=== PATIENT | male | born 1950 | race Caucasian/White ===

== ENCOUNTER 2018-02-19 07:14 | Outpatient (CLI) | payer MEDICARE ==
[2018-02-19 11:53] LABS: BILIRUBIN,URINE NEGATIVE (NEGATIVE); GLUCOSE, URINE (UA) NEGATIVE (NEGATIVE); KETONES,URINE (UA) NEGATIVE (NEGATIVE); LEUKOCYTE ESTERASE, URINE NEGATIVE (NEGATIVE); NITRITE,URINE NEGATIVE (NEGATIVE); OCCULT BLOOD,URINE NEGATIVE (NEGATIVE); PROTEIN,URINE NEGATIVE (NEGATIVE); UROBILINOGEN,URINE 0.2 (NORMAL) E.U./dL (NORMAL)
[2018-02-19 12:09] LABS: BASOPHILS % (AUTO) 0.8 %; EOSINOPHILS # (AUTO) 0.2 10^3/uL (0.0-0.7); EOSINOPHILS % (AUTO) 2.4 %; HGB - HEMOGLOBIN 13.1 g/dL (14.0-18.0); LYMPHOCYTES # (AUTO) 1.5 10^3/uL (1.5-3.5); LYMPHOCYTES % (AUTO) 22.9 %; MEAN CORPUSCULAR HEMOGLOBIN 31.7 pg (27.0-31.0); MEAN CORPUSCULAR HGB CONC 34.9 g/dL (32.0-36.0); MEAN CORPUSCULAR VOLUME 90.8 fL (80.0-94.0); MEAN PLATELET VOLUME 8.8 fL (7.4-11.4); MONOCYTES # (AUTO) 0.5 10^3/uL (0.0-1.0); MONOCYTES % (AUTO) 8.5 %; NEUTROPHILS # (AUTO) 4.2 10^3/uL (1.5-6.6); NEUTROPHILS % (AUTO) 65.4 %; PLT - PLATELET COUNT 254 10^3/uL (130-450); RED BLOOD COUNT 4.15 10^6/uL (4.70-6.10); RED CELL DISTRIBUTION WIDTH 12.8 % (12.0-15.0); WHITE BLOOD COUNT 6.4 x10^3/uL (4.8-10.8)
[2018-02-19 12:17] LABS: ALBUMIN 4.1 g/dL (3.2-5.5); ALBUMIN/GLOBULIN RATIO 1.1 (1.0-2.2); BILIRUBIN,TOTAL 0.8 mg/dL (0.2-1.0); CALCIUM 8.8 mg/dL (8.5-10.3); CREATININE 0.7 mg/dL (0.6-1.2); TOTAL PROTEIN 7.9 g/dL (6.7-8.2)
[2018-02-19 12:26] LABS: BACTERIA,URINE None Seen /HPF (None Seen); CLARITY,URINE CLEAR (CLEAR); RBC,URINE None Seen /HPF (0-5); SQUAMOUS EPITHELIAL CELL,UR NONE SEEN (<= Few)
== END 2018-02-19 07:15 | disposition home or self-care (01) ==
LOC: LAB.F 07:14
PROVIDERS: ATTEND Internal Medicine
DX: M17.12 Unilateral primary osteoarthritis, left knee (principal)
CPT/HCPCS: 36415; 80053; 81001; 85025; 85610; 87086

== ENCOUNTER 2018-02-28 21:06 | Emergency (ER) | payer MEDICARE, OTHER ==
--- NOTE | 2018-02-28 22:05 | ED Physician Documentation ---
History of Present Illness - Stated complaint Stated Complaint: RT HIP PX - Chief complaint Chief Complaint: Ext Problem - History obtained from History obtained from: Patient - History of Present Illness Timing: Today (this morning) Pain level now: 8 Improved by: rest Worsened by: movement - Additonal information Additional information: c/o right hip pain, gradually worsening since gradual onset this morning. he says he had recent xrays performed that demonstrated severe arthritis and that he was told he will likely need the hip replaced. no recent injury. pain has become severe and has never been this intense in the past. he took two tablets of his wifes oxycodone earlier this evening without any improvement Review of Systems Constitutional: reports: Reviewed and negative Skin: denies: Rash Musculoskeletal: reports: Joint pain, Pain with weight bearing. denies: Neck pain, Back pain, Extremity swelling, Joint swelling Neurologic: denies: Focal weakness, Numbness PD PAST MEDICAL HISTORY - Past Medical History Past Medical History: Yes - Present Medications Home Medications: Ambulatory Orders Medication Instructions Recorded Confirmed HYDROmorphone [Dilaudid] 2 mg PO Q4H PRN #20 tablet 03/01/18 Ibuprofen 600 mg PO Q6HR PRN #20 tablet 03/01/18 - Allergies Allergies/Adverse Reactions: Allergies Allergy/AdvReac Type Severity Reaction Status Date / Time No Known Drug Allergies Allergy Verified 02/28/18 21:25 - Social History Does the pt smoke?: No Smoking Status: Never smoker Does the pt drink ETOH?: Yes Does the pt have substance abuse?: No - Immunizations Immunizations are current?: Yes - POLST Patient has POLST: No PD ED PE NORMAL - Vitals Vital signs reviewed: Yes - General General: Alert and oriented X 3, Well developed/nourished, Other (appears to be in painful distress) - Abdomen Abdomen: Soft, Non tender - Back Back: No CVA TTP, No spinal TTP - Derm Derm: Normal color, Warm and dry, No rash - Extremities Extremities: No deformity, No tenderness to palpate, No edema, No calf tenderness / cord - Neuro Neuro: No motor deficit, No sensory deficit Results - Vitals Vitals: Vital Signs - 24 hr 02/28/18 02/28/18 02/28/18 21:23 22:35 23:03 Temperature 36.1 C L Heart Rate 75 74 79 Respiratory 16 19 15 Rate Blood Pressure 142/85 H 139/99 H 156/103 H O2 Saturation 97 100 100 02/28/18 02/28/18 02/28/18 23:18 23:25 23:48 Temperature Heart Rate 87 86 92 Respiratory 13 21 12 Rate Blood Pressure 154/101 H 154/101 H 143/92 H O2 Saturation 98 96 98 03/01/18 03/01/18 03/01/18 00:38 00:57 01:25 Temperature 36.9 C Heart Rate 79 94 86 Respiratory 14 14 12 Rate Blood Pressure 113/65 113/65 147/90 H O2 Saturation 94 97 96 03/01/18 03:45 Temperature 36.8 C Heart Rate 81 Respiratory 16 Rate Blood Pressure 148/51 H O2 Saturation 99 Oxygen O2 Source Room air - Labs Labs: Laboratory Tests 02/28/18 02/28/18 02/28/18 22:45 22:45 22:45 WBC 10.9 H RBC 3.96 L Hgb 12.6 L Hct 35.8 L MCV 90.4 MCH 31.7 H MCHC 35.1 RDW 12.4 Plt Count 229 MPV 8.4 Neut # (Auto) 6.3 Lymph # (Auto) 2.9 [place] # (Auto) 1.3 H Eos # (Auto) 0.4 Baso # (Auto) 0.1 Absolute Nucleated RBC 0.01 Nucleated RBC % 0.1 ESR 75 H Sodium 135 Potassium 3.6 Chloride 101 Carbon Dioxide 26 Anion Gap 8.0 BUN 16 Creatinine 1.0 Estimated GFR (MDRD) 75 L Glucose 131 H Calcium 8.7 Total Bilirubin 0.7 AST 22 ALT 19 Alkaline Phosphatase 76 C-Reactive Protein Total Protein 7.7 Albumin 3.9 Globulin 3.8 Albumin/Globulin Ratio 1.0 Lipase 62 H Urine Color Urine Clarity Urine pH Ur Specific [place] Urine Protein Urine Glucose (UA) Urine Ketones Urine Occult Blood Urine Nitrite Urine Bilirubin Urine Urobilinogen Ur Leukocyte Esterase Ur Microscopic Review Urine Culture Comments 02/28/18 02/28/18 22:45 23:20 WBC RBC Hgb Hct MCV MCH MCHC RDW Plt Count MPV Neut # (Auto) Lymph # (Auto) [place] # (Auto) Eos # (Auto) Baso # (Auto) Absolute Nucleated RBC Nucleated RBC % ESR Sodium Potassium Chloride Carbon Dioxide Anion Gap BUN Creatinine Estimated GFR (MDRD) Glucose Calcium Total Bilirubin AST ALT Alkaline Phosphatase C-Reactive Protein 3.0 H Total Protein Albumin Globulin Albumin/Globulin Ratio Lipase Urine Color YELLOW Urine Clarity CLEAR Urine pH 6.5 Ur Specific [place] 1.020 Urine Protein TRACE Urine Glucose (UA) NEGATIVE Urine Ketones TRACE Urine Occult Blood NEGATIVE Urine Nitrite NEGATIVE Urine Bilirubin NEGATIVE Urine Urobilinogen 0.2 (NORMAL) Ur Leukocyte Esterase NEGATIVE Ur Microscopic Review NOT INDICATED Urine Culture Comments NOT INDICATED - Rads (name of study) CT right hip Radiology: Prelim report reviewed, See rad report PD MEDICAL DECISION MAKING - ED course Complexity details: reviewed results, re-evaluated patient, considered differential, d/w patient Departure - Departure Disposition: Home, Self Care Clinical Impression: Arthritis Condition: Good Instructions: ED Degenerative Joint Disease Follow-Up: Giorgi Clemens MD [Primary Care Provider] - (Call to arrange for next available appointment ) Prescriptions: Ibuprofen 600 mg PO Q6HR PRN #20 tablet PRN Reason: Pain HYDROmorphone [Dilaudid] 2 mg PO Q4H PRN #20 tablet PRN Reason: Pain Discharge Date/Time: 03/01/18 03:49
[2018-02-28] MEDS ORDERED: HYDROmorphone 1 MG/ML CARPUJECT IM STA (22:27)
[2018-02-28] MEDS ORDERED: HYDROmorphone 2 MG/ML VIAL IVP STA (22:50)
[2018-02-28 22:57] LABS: BASOPHILS # (AUTO) 0.1 10^3/uL (0.0-0.1); BASOPHILS % (AUTO) 0.6 %; EOSINOPHILS # (AUTO) 0.4 10^3/uL (0.0-0.7); EOSINOPHILS % (AUTO) 3.6 %; HGB - HEMOGLOBIN 12.6 g/dL (14.0-18.0); LYMPHOCYTES # (AUTO) 2.9 10^3/uL (1.5-3.5); LYMPHOCYTES % (AUTO) 26.1 %; MEAN CORPUSCULAR HEMOGLOBIN 31.7 pg (27.0-31.0); MEAN CORPUSCULAR HGB CONC 35.1 g/dL (32.0-36.0); MEAN CORPUSCULAR VOLUME 90.4 fL (80.0-94.0); MEAN PLATELET VOLUME 8.4 fL (7.4-11.4); MONOCYTES # (AUTO) 1.3 10^3/uL (0.0-1.0); MONOCYTES % (AUTO) 12.2 %; NEUTROPHILS # (AUTO) 6.3 10^3/uL (1.5-6.6); NEUTROPHILS % (AUTO) 57.5 %; PLT - PLATELET COUNT 229 10^3/uL (130-450); RED BLOOD COUNT 3.96 10^6/uL (4.70-6.10); RED CELL DISTRIBUTION WIDTH 12.4 % (12.0-15.0); WHITE BLOOD COUNT 10.9 x10^3/uL (4.8-10.8)
[2018-02-28 23:07] LABS: ALBUMIN 3.9 g/dL (3.2-5.5); BILIRUBIN,TOTAL 0.7 mg/dL (0.2-1.0); CALCIUM 8.7 mg/dL (8.5-10.3); TOTAL PROTEIN 7.7 g/dL (6.7-8.2)
[2018-02-28] MEDS ORDERED: HYDROmorphone 1 MG/ML CARPUJECT IVP STA (23:09)
[2018-02-28 23:33] LABS: BILIRUBIN,URINE NEGATIVE (NEGATIVE); GLUCOSE, URINE (UA) NEGATIVE (NEGATIVE); KETONES,URINE (UA) TRACE mg/dL (NEGATIVE); LEUKOCYTE ESTERASE, URINE NEGATIVE (NEGATIVE); NITRITE,URINE NEGATIVE (NEGATIVE); OCCULT BLOOD,URINE NEGATIVE (NEGATIVE); PH,URINE 6.5 PH (5.0-7.5); PROTEIN,URINE TRACE mg/dL (NEGATIVE); UROBILINOGEN,URINE 0.2 (NORMAL) E.U./dL (NORMAL)
[2018-02-28 23:34] LABS: CLARITY,URINE CLEAR (CLEAR)
[2018-03-01] MEDS ORDERED: KETOROLAC 60 MG/2 ML VIAL IVP STA (01:31)
--- NOTE | 2018-03-01 02:57 | CT Report ---
Reason: severe right hip pain Procedure Date: 03/01/2018 Accession Number: [id number] / [id number] Procedure: CT - Lower Extremity Right W/O CPT Code: FULL RESULT: EXAM: RIGHT HIP CT WITHOUT CONTRAST EXAM DATE: 03/01/2018 02:22 AM. CLINICAL HISTORY: Severe right hip pain. COMPARISON: None. TECHNIQUE: Thin-section axial images were acquired of the hip without contrast. Post-processing: Coronal and sagittal reformats. Other: None. In accordance with CT protocol optimization, one or more of the following dose reduction techniques were utilized for this exam: automated exposure control, adjustment of mA and/or KV based on patient size, or use of iterative reconstructive technique. FINDINGS: Bones: No acute displaced fracture or suspicious bony lesion is demonstrated. Small sclerotic focus noted within the right iliac bone, with appearances suggestive of a bone island. Joints: No dislocation demonstrated. There is severe right hip degenerative change. Severe hypertrophic L5-S1 facet arthropathy noted bilaterally. Soft tissues: Moderate to severe multifactorial central canal stenosis noted at L4-L5. Multiple surgical clips are seen within the left groin region, probably from prior lymph node dissection. A few surgical clips are also seen within the right groin region from prior lymph node dissection. There is a small fat-containing right inguinal hernia. No abnormally dilated bowel loops within the visualized portions. Moderate to large amount of retained fecal matter is noted within the colon. IMPRESSION: 1. No acute displaced fracture. 2. Severe right hip degenerative change. 3. Moderate to large amount of retained fecal matter within the visualized portions of the colon. 4. Small fat-containing right inguinal hernia. RADIA
[2018-03-01] MEDS ORDERED: oxyCODONE/ACET 5/325 Prepack 4 PO STA (03:22)
[2018-03-01] MEDS ORDERED: HYDROmorphone 1 MG/ML CARPUJECT IVP STA (03:25)
[2018-03-01 03:47] VITALS: BP 148/51
== END 2018-03-01 03:49 | disposition home or self-care (01) ==
LOC: ED 21:06
DX: M16.11 Unilateral primary osteoarthritis, right hip (principal); K40.90 Unilateral inguinal hernia, without obstruction or gangrene, not specified as recurrent; K59.00 Constipation, unspecified; R94.31 Abnormal electrocardiogram [ECG] [EKG]
CPT/HCPCS: 36415; 73700; 80053; 81003; 83690; 85025; 85651; 86140; 93005; 96374; 96375; 96376; 99284; 99285; J1170; 81001; 87086

== ENCOUNTER 2018-03-02 13:13 | Observation (INO) | payer MEDICARE, OTHER ==
[2018-03-02] MEDS ORDERED: ONDANSETRON 4 MG/2 ML VIAL IVP STA ×2 (13:48→16:00)
[2018-03-02] MEDS ORDERED: SODIUM CHLORIDE 0.9% 1,000 ML IV ONE (13:48)
--- NOTE | 2018-03-02 13:51 | ED Physician Documentation ---
History of Present Illness - Stated complaint Stated Complaint: R HIP PX/NAUSEA - Chief complaint Chief Complaint: Abd Pain - History obtained from History obtained from: Patient, Family - History of Present Illness Timing: Yesterday Pain level max: 0 Pain level now: 0 - Additonal information Additional information: 67-year-old male With no past medical history past surgical history for shoulders and hernias here with complaint of nausea ever since he was started on a strong pain medication the other day. Patient stated he was seen here in the emergency room last Saturday for right hip pain and was worked up and discharged on pain medication and nausea medication. He stated that he took Zofran at 930 this morning without any effect. He had called her primary Dr. Lauren Calles regarding this problem and was told to come to the emergency room. Denies any fever, upper respiratory symptoms, abdominal pain, constipation or diarrhea.Patient stated his right hip pain had gotten better with the pain medication.Patient tolerated soup last night and some liquids this morning.Denies any trauma, travel or sick contacts. Review of Systems Ten Systems: 10 systems reviewed and negative Constitutional: denies: Fever, Chills Nose: denies: Congestion Cardiac: denies: Chest pain / pressure Respiratory: denies: Dyspnea, Cough GI: reports: Nausea. denies: Abdominal Pain, Vomiting, Constipation, Diarrhea : reports: Dysuria Musculoskeletal: denies: Back pain, Extremity pain Neurologic: denies: Generalized weakness, Near syncope, Headache PD PAST MEDICAL HISTORY - Present Medications Home Medications: Ambulatory Orders Medication Instructions Recorded Confirmed HYDROmorphone [Dilaudid] 2 mg PO Q4H PRN #20 tablet 03/01/18 Ibuprofen 600 mg PO Q6HR PRN #20 tablet 03/01/18 - Allergies Allergies/Adverse Reactions: Allergies Allergy/AdvReac Type Severity Reaction Status Date / Time No Known Drug Allergies Allergy Verified 03/02/18 13:26 - Social History Does the pt smoke?: No Smoking Status: Never smoker Does the pt drink ETOH?: Yes Does the pt have substance abuse?: No - Immunizations Immunizations are current?: Yes - POLST Patient has POLST: No PD ED PE NORMAL - Vitals Vital signs reviewed: Yes - General General: Alert and oriented X 3, No acute distress, Well developed/nourished - HEENT HEENT: EOMI, Moist mucous membranes, Pharynx benign - Neck Neck: Supple, no meningeal sign - Cardiac Cardiac: RRR, No murmur - Respiratory Respiratory: No respiratory distress, Clear bilaterally - Abdomen Abdomen: Normal bowel sounds, Soft, Non tender, Non distended - Back Back: No CVA TTP, No spinal TTP - Derm Derm: Normal color, Warm and dry - Extremities Extremities: No deformity, Normal ROM s pain - Neuro Neuro: Alert and oriented X 3, Normal speech - Psych Psych: Normal mood, Normal affect Results - Vitals Vitals: Vital Signs - 24 hr 03/02/18 03/02/18 03/02/18 13:22 15:16 16:06 Temperature 36.6 C Heart Rate 76 83 Respiratory 18 16 Rate Blood Pressure 128/78 139/78 H 134/86 H O2 Saturation 99 97 95 Oxygen O2 Source Room air - Labs Labs: Laboratory Tests 03/02/18 03/02/18 03/02/18 14:00 14:00 15:05 WBC 9.9 RBC 3.73 L Hgb 11.8 L Hct 32.8 L MCV 87.9 MCH 31.6 H MCHC 35.9 RDW 12.3 Plt Count 246 MPV 7.8 Neut # (Auto) 8.2 H Lymph # (Auto) 0.9 L [place] # (Auto) 0.7 Eos # (Auto) 0.1 Baso # (Auto) 0.1 Absolute Nucleated RBC 0.00 Nucleated RBC % 0.0 Sodium 123 L Potassium 3.2 L Chloride 90 L Carbon Dioxide 25 Anion Gap 8.0 BUN 12 Creatinine 0.8 Estimated GFR (MDRD) 96 Glucose 115 H Calcium 8.6 Total Bilirubin 0.9 AST 22 ALT 20 Alkaline Phosphatase 76 Total Protein 7.4 Albumin 3.7 Globulin 3.7 Albumin/Globulin Ratio 1.0 Lipase 54 H Urine Color Urine Clarity Urine pH Ur Specific [place] Urine Protein Urine Glucose (UA) Urine Ketones Urine Occult Blood Urine Nitrite Urine Bilirubin Urine Urobilinogen Ur Leukocyte Esterase Ur Microscopic Review Urine Culture Comments Urine Sodium < 12.0 03/02/18 15:05 WBC RBC Hgb Hct MCV MCH MCHC RDW Plt Count MPV Neut # (Auto) Lymph # (Auto) [place] # (Auto) Eos # (Auto) Baso # (Auto) Absolute Nucleated RBC Nucleated RBC % Sodium Potassium Chloride Carbon Dioxide Anion Gap BUN Creatinine Estimated GFR (MDRD) Glucose Calcium Total Bilirubin AST ALT Alkaline Phosphatase Total Protein Albumin Globulin Albumin/Globulin Ratio Lipase Urine Color YELLOW Urine Clarity CLEAR Urine pH 6.0 Ur Specific [place] 1.015 Urine Protein NEGATIVE Urine Glucose (UA) NEGATIVE Urine Ketones 15 H Urine Occult Blood NEGATIVE Urine Nitrite NEGATIVE Urine Bilirubin NEGATIVE Urine Urobilinogen 0.2 (NORMAL) Ur Leukocyte Esterase NEGATIVE Ur Microscopic Review NOT INDICATED Urine Culture Comments NOT INDICATED Urine Sodium PD MEDICAL DECISION MAKING - ED course Complexity details: reviewed results, re-evaluated patient (1404 Patient complaining of nausea we will give patient IV Zofran. 1426 patient complaining of right hip pain and requesting for pain medication will give him morphine. 1453 patient inform of test results. Denies any pain or nausea. 1455 patient requesting for nausea medication. He then stated that he has not had a BM nor appetite the past 2 days. He also claimed that he has been feeling bloated the past 2 days. He agreed to have a CT of the abdomen and pelvis. 1745 patient and family informed of test results and awaiting consult to general surgeon. 1800 patient inform of general surgeons recommendation and agreed to admission. Patient requesting for pain medication for his right hip. Will give Toradol this time instead of narcotic pain medication.), considered differential (Pain medication side effect, dehydration), d/w patient, d/w family, d/w PMD ([address] Landin including recommendation of general surgeon. He will admit the patient for observation), d/w lending consultant (1753 Case discussed with general surgeon on-call Dr. Alvarado. He stated patient does not require NG tube neurosurgery at this time and wants the patient admitted to the hospitalist.) Departure - Departure Disposition: 01 Home, Self Care Clinical Impression: Small bowel obstruction, Acute right hip pain, Hyponatremia Condition: Stable
[2018-03-02 14:06] LABS: BASOPHILS # (AUTO) 0.1 10^3/uL (0.0-0.1); BASOPHILS % (AUTO) 0.6 %; EOSINOPHILS # (AUTO) 0.1 10^3/uL (0.0-0.7); EOSINOPHILS % (AUTO) 0.6 %; HGB - HEMOGLOBIN 11.8 g/dL (14.0-18.0); LYMPHOCYTES # (AUTO) 0.9 10^3/uL (1.5-3.5); MEAN CORPUSCULAR HEMOGLOBIN 31.6 pg (27.0-31.0); MEAN CORPUSCULAR HGB CONC 35.9 g/dL (32.0-36.0); MEAN CORPUSCULAR VOLUME 87.9 fL (80.0-94.0); MEAN PLATELET VOLUME 7.8 fL (7.4-11.4); MONOCYTES # (AUTO) 0.7 10^3/uL (0.0-1.0); NEUTROPHILS # (AUTO) 8.2 10^3/uL (1.5-6.6); NEUTROPHILS % (AUTO) 82.8 %; PLT - PLATELET COUNT 246 10^3/uL (130-450); RED BLOOD COUNT 3.73 10^6/uL (4.70-6.10); RED CELL DISTRIBUTION WIDTH 12.3 % (12.0-15.0); WHITE BLOOD COUNT 9.9 x10^3/uL (4.8-10.8)
[2018-03-02 14:21] LABS: ALBUMIN 3.7 g/dL (3.2-5.5); BILIRUBIN,TOTAL 0.9 mg/dL (0.2-1.0); CALCIUM 8.6 mg/dL (8.5-10.3); CREATININE 0.8 mg/dL (0.6-1.2); TOTAL PROTEIN 7.4 g/dL (6.7-8.2)
[2018-03-02] MEDS ORDERED: MORPHINE 2 MG/ML CARPUJECT IVP STA (14:25)
[2018-03-02] MEDS ORDERED: POTASSIUM CHLORIDE 20 MEQ TABLET PO STA (14:26)
[2018-03-02 15:10] LABS: BILIRUBIN,URINE NEGATIVE (NEGATIVE); GLUCOSE, URINE (UA) NEGATIVE (NEGATIVE); KETONES,URINE (UA) 15 mg/dL (NEGATIVE); LEUKOCYTE ESTERASE, URINE NEGATIVE (NEGATIVE); NITRITE,URINE NEGATIVE (NEGATIVE); OCCULT BLOOD,URINE NEGATIVE (NEGATIVE); PROTEIN,URINE NEGATIVE (NEGATIVE); UROBILINOGEN,URINE 0.2 (NORMAL) E.U./dL (NORMAL)
[2018-03-02 15:12] LABS: CLARITY,URINE CLEAR (CLEAR)
[2018-03-02] MEDS ORDERED: IOPAMIDOL-300 100 ML VIAL IVP ONE (16:31)
--- NOTE | 2018-03-02 17:45 | CT Report ---
Reason: abdominal bloating, intractable nausea Procedure Date: 03/02/2018 Accession Number: [id number] / [id number] Procedure: CT - Abdomen/Pelvis W/ CPT Code: FULL RESULT: EXAM: CT ABDOMEN AND PELVIS EXAM DATE: 03/02/2018 04:29 PM. CLINICAL HISTORY: Abdominal bloating, intractable nausea. COMPARISONS: Pelvic CT from 03/01/2018. TECHNIQUE: Routine helical CT imaging was performed through the abdomen and pelvis. IV contrast: ISOVUE 300 100mL. Enteric contrast: No. Reconstructions: Coronal and sagittal. In accordance with CT protocol optimization, one or more of the following dose reduction techniques were utilized for this exam: automated exposure control, adjustment of mA and/or KV based on patient size, or use of iterative reconstructive technique. FINDINGS: Lung Bases: Unremarkable. Liver: Normal. Gallbladder/Bile Ducts: Unremarkable. Spleen: Normal. Pancreas: Atrophic. Adrenal Glands: Normal. Kidneys: No hydronephrosis. Peritoneal Cavity/Bowel: There is a small hiatal hernia. Nondilated duodenum and proximal jejunum. There are multiple mildly dilated fluid-filled loops of mid to distal jejunum and ileum measuring up to 3 cm. The bowel dilation is increased from yesterday. There is decompression of the terminal ileum with a transition point in the right anterior abdomen. Mild mesenteric edema with trace fluid adjacent to dilated right abdominal bowel loops. No significant ascites. No free air. The colon is not significantly decompressed and contains gas and stool, suggesting a low-grade small bowel obstruction. The appendix is well visualized and normal. Pelvic Organs: Bladder and prostate gland are unremarkable. Vasculature: No aneurysms or other significant abnormality. Bones: There is grade 1 degenerative anterolisthesis of L4 on L5. Multilevel disk degeneration and facet arthrosis. Other: Prior left inguinal hernia repair. IMPRESSION: Small bowel obstruction with transition point at the terminal ileum. The colon is not decompressed and contains gas and stool, suggesting a low-grade obstruction. No free air. RADIA
[2018-03-02] MEDS ORDERED: KETOROLAC 60 MG/2 ML VIAL IVP STA (18:01)
[2018-03-02] MEDS ORDERED: ONDANSETRON 4 MG/2 ML VIAL IVP PRN (18:05)
[2018-03-02] MEDS ORDERED: SODIUM CHLORIDE FLUSH 0.9% 10 ML SYRINGE IVP PRN (18:05)
[2018-03-02] MEDS ORDERED: oxyCODONE 5 MG TABLET PO PRN ×2 (18:05)
[2018-03-02] MEDS ORDERED: ACETAMINOPHEN 325 MG TABLET PO PRN (18:05)
[2018-03-02] MEDS ORDERED: PROMETHAZINE 25 MG/1 ML VIAL IM PRN (18:05)
--- NOTE | 2018-03-02 18:11 | HISTORY & PHYSICAL EXAMINATION ---
Chief Complaint - Chief Complaint Chief Complaint: Nausea History of Present Illness - Admitted From Admitted From:: Emergency Department - History Obtained From Records Reviewed: Yes History obtained from: Patient Exam Limitations: None - History of Present Illness HPI Comment/Other: Patient is a very pleasant 67-year-old gentleman with past medical history significant for osteoarthritis, non-Hodgkin's lymphoma low-grade B cell last treated in 2009 currently under monitoring, history of tuberculosis as a child and 2 hernia repairs who presented to the emergency department with chief complaint of nausea. The patient states that he was in his normal state of health until he returned from a trip to [facility] on February 10 when he states that he came down with a cold. He states that he had symptoms for about 2-3 days and that resolved. He states that after that he had a stomach flu which persisted for several days. He states that during this time he also noticed that he had irregularities in his bowel movements. He states that he seemed to improve. Then on 02/28/2018 the patient had severe right hip pain. He states that this came out of nowhere and it was a 10 out of 10 pain. He states that prior to this he was being evaluated for right knee arthritis and was going to be going for a right knee replacement. He states he does have a history of osteoarthritis. The patient states that he spent the night in the emergency room on 02/28/2018 and was treated with narcotics and then discharged with oxycodone, Dilaudid, ibuprofen and Tylenol for his right hip pain. He also underwent imaging of his right hip which showed severe osteoarthritis. The patient states that when he returned home he began having severe nausea therefore his called back to the emergency department and he was prescribed Zofran. The patient states that despite taking Zofran he continued to be nauseated throughout the day. He states that when he woke up this morning he noticed that he was having a bloated abdomen with no appetite and continued to have nausea. The patient states that his last bowel movement was on 02/28/2018 and he has not had any bowel movement since. States he has been persistently nauseated but has not had any abdominal pain. He states that his nausea was so bad today that he finally came to the emergency department. The patient denies any fevers or chills. Patient denies any headaches, blurred vision, runny nose, sore throat, nasal congestion, difficulty swallowing, chest pain, cough, shortness of air, orthopnea, PND, increased lower extremity swelling, diarrhea, muscle aches, back pain, neck stiffness, skin changes, skin rash, dizziness, syncope, polyuria, polydipsia, dysuria, increased urinary frequency, night sweats or any focal neurologic deficits. On presentation to the emergency department the patient was afebrile and vital signs were within normal limits. The patient did appear to be nauseated and received antiemetics and IV fluids. The patient underwent routine lab work which showed a mild anemia with hemoglobin of 11.8. The patient's sodium was low at 123 and potassium was low at 3.2. The patient did have urine ketones but otherwise urine analysis was negative. The patient was initially feeling better with antiemetics, fluids and pain medication. However after a few hours patient's symptoms return with increasing nausea and abdominal bloating. The emergency room physician decided to get a CT of the abdomen and pelvis which revealed a small bowel obstruction with transition point at the terminal ileum. The colon is not decompressed and contains gas and stool suggesting a low-grade obstruction. Given this finding the patient was placed in observation for small bowel obstruction. History - Past Medical History Cardiovascular: reports: None Respiratory: reports: None Neuro: reports: None Endocrine/Autoimmune: reports: None GI: reports: None : reports: None HEENT: reports: None Psych: reports: None Musculoskeletal: reports: Osteoarthritis Derm: reports: None MRSA Hx?: No Other Past Medical History: Non-Hodgkin's lymphoma low-grade B-cell status post treatment last treatment was in 2009. Currently on monitoring - Past Surgical History General: reports: Hiatal hernia repair (X2) Ortho: reports: Shoulder arthroplasty - Family & Social History Family History: Mother: , Father: , Cancer (Father had lung cancer, brother had brain tumor, sister had breast cancer and brother has leukemia), Sister: Cancer, Brother: Cancer, Other family: Cancer Living arrangement: At home Living Situation: With spouse/s.o. Social History Notes: The patient lives in [place], [place] with his . He is originally from [facility] and moved to the [facility] in 1974. 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 He has 3 children and 7 grandchildren. He is and lives with his . He moved to [facility] just a year ago prior to that he was living in [place]. The patient is a non-smoker he does drink wine soci ally and denies any illicit drug use. - POLST Patient has POLST: No POLST Status: Full Code Meds/Allgy - Home Medications Home Medications: Ambulatory Orders Medication Instructions Recorded Confirmed HYDROmorphone [Dilaudid] 2 mg PO Q4H PRN #20 tablet 03/01/18 Ibuprofen 600 mg PO Q6HR PRN #20 tablet 03/01/18 - Allergies Allergies/Adverse Reactions: Allergies Allergy/AdvReac Type Severity Reaction Status Date / Time No Known Drug Allergies Allergy Verified 03/02/18 13:26 Review of Systems - Other Findings Other Findings: A comprehensive review of systems was performed the pertinent positives and negatives are stated above in the HPI and the remainder of the review of systems is negative. Prior Level of Functionality: Patient is completely independent with all his activities of daily living. Exam - Vital Signs Reviewed Vital Signs: Yes Vital Signs: Vital Signs x48h Temp Pulse Resp BP Pulse Ox 03/02/18 16:06 83 16 134/86 H 95 03/02/18 15:16 139/78 H 97 03/02/18 13:22 36.6 C 76 18 128/78 99 - Physical Exam General Appearance: positive: No acute distress, Alert Eyes Bilateral: positive: Normal inspection, PERRL, No lid inflammation, Conjunctivae nml, No scleral icterus ENT: positive: ENT inspection nml, Pharynx nml, Dry mucous membranes. negative: Purulent nasal drainage, Pharyngeal erythema, Oral lesions Neck: positive: Nml inspection, Thyroid nml, No JVD, Trachea midline Respiratory: positive: Chest non-tender, No respiratory distress, Breath sounds nml Cardiovascular: positive: Regular rate & rhythm, No murmur, No gallop Peripheral Pulses: positive: 2+ Abdomen: positive: Non-tender, No organomegaly, Nml bowel sounds, Abnml bowel sounds (Decreased bowel sounds), Other (Mildly distended abdomen). negative: Guarding, Rebound, Hepatomegaly Back: positive: Nml inspection. negative: CVA tenderness (R), CVA tenderness (L) Skin: positive: Color nml, No rash, Warm, Dry. negative: Cyanosis, Diaphoresis, Skin rash Extremities: positive: Non-tender, Full ROM, Nml appearance, No pedal edema Neurologic/Psychiatric: positive: Oriented x3, CN's nml (2-12), Motor nml, Sensation nml, Mood/affect nml Conclusion/Plan - Problem List (1) Small bowel obstruction Conclusion/Plan: Patient presented with nausea for the past 3 days. Patient is also been having right hip pain but denies any abdominal pain. He does state that today he felt that he had abdominal bloating. On presentation to the emergency department the patient was found to be hyponatremic and hypokalemic and appeared quite dry on examination. The patient's abdominal exam was unremarkable but given his persistent nausea and abdominal bloating patient underwent a CT of his abdomen which revealed a small bowel obstruction with transition point in the terminal ileum. The patient was placed in observation for small bowel obstruction which appears to be low-grade. Patient has had 2 hernia repairs and this small bowel obstruction is likely due to adhesions from prior surgery. Plan: Bowel rest n.p.o. IV fluids IV antiemetics IV Dilaudid for pain control Daily abdominal x-rays Surgery consultation (2) Hyponatremia Conclusion/Plan: The patient has a significant hyponatremia with a sodium of 123. Just 2 days earlier the patient's sodium was 135. The patient does appear to be dry on examination as he has not been eating or drinking well the last few days and continues to be nauseated. Likely the patient's hyponatremia is secondary to hypovolemia due to poor oral intake and persistent nausea from his small bowel obstruction. Patient will be given IV fluids and we will continue to monitor the sodium. If the patient's sodium is not improving we will need to consider other causes of possible hyponatremia (3) Hypokalemia Conclusion/Plan: The patient does have hypokalemia on presentation. This is likely secondary to his persistent nausea and small bowel obstruction. Patient will get potassium replacement through IV while he is hospitalized. We will continue to monitor t he patient's potassium daily. The patient will also be receiving antiemetics for his persistent nausea. (4) Anemia Conclusion/Plan: The patient does have anemia on routine lab work with a hemoglobin of 11.8. The patient's previous hemoglobin earlier this month was 13.1. We will do a workup for this anemia with iron studies, ferritin, B12 and folate. We will also continue to monitor the patient's hemoglobin daily. Qualifiers: Anemia type: unspecified type Qualified Code(s): D64.9 - Anemia, unspe cified (5) Right hip pain Conclusion/Plan: The patient has been having right hip pain for the last 3 days and did undergo a x-ray of the right hip yesterday which showed a no acute displaced fracture and did show severe right hip degenerative change. Likely the patient has right hip pain secondary to osteoarthritis of the right hip. The patient will be treated with nonsteroidal anti-inflammatories and Tylenol. The patient will also benefit from outpatient physical therapy. - Lab Results Lab results reviewed: Yes Fish Bones: 03/02/18 14:00 03/02/18 14:00 Other Lab Results: Laboratory Results WBC 9.9 x10^3/uL (4.8-10.8) 03/02/18 14:00 RBC 3.73 10^6/uL (4.70-6.10) L 03/02/18 14:00 Hgb 11.8 g/dL (14.0-18.0) L 03/02/18 14:00 Hct 32.8 % (42.0-52.0) L 03/02/18 14:00 MCV 87.9 fL (80.0-94.0) 03/02/18 14:00 MCH 31.6 pg (27.0-31.0) H 03/02/18 14:00 MCHC 35.9 g/dL (32.0-36.0) 03/02/18 14:00 RDW 12.3 % (12.0-15.0) 03/02/18 14:00 Plt Count 246 10^3/uL (130-450) 03/02/18 14:00 MPV 7.8 fL (7.4-11.4) 03/02/18 14:00 Neut # (Auto) 8.2 10^3/uL (1.5-6.6) H 03/02/18 14:00 Lymph # (Auto) 0.9 10^3/uL (1.5-3.5) L 03/02/18 14:00 Blanco # (Auto) 0.7 10^3/uL (0.0-1.0) 03/02/18 14:00 Eos # (Auto) 0.1 10^3/uL (0.0-0.7) 03/02/18 14:00 Baso # (Auto) 0.1 10^3/uL (0.0-0.1) 03/02/18 14:00 Absolute Nucleated RBC 0.00 x10^3/uL 03/02/18 14:00 Nucleated RBC % 0.0 /100WBC 03/02/18 14:00 Sodium 123 mmol/L (135-145) L 03/02/18 14:00 Potassium 3.2 mmol/L (3.5-5.0) L 03/02/18 14:00 Chloride 90 mmol/L (101-111) L 03/02/18 14:00 Carbon Dioxide 25 mmol/L (21-32) 03/02/18 14:00 Anion Gap 8.0 (6-13) 03/02/18 14:00 BUN 12 mg/dL (6-20) 03/02/18 14:00 Creatinine 0.8 mg/dL (0.6-1.2) 03/02/18 14:00 Estimated GFR (MDRD) 96 (>89) 03/02/18 14:00 Glucose 115 mg/dL (70-100) H 03/02/18 14:00 Calcium 8.6 mg/dL (8.5-10.3) 03/02/18 14:00 Total Bilirubin 0.9 mg/dL (0.2-1.0) 03/02/18 14:00 AST 22 IU/L (10-42) 03/02/18 14:00 ALT 20 IU/L (10-60) 03/02/18 14:00 Alkaline Phosphatase 76 IU/L (42-121) 03/02/18 14:00 Total Protein 7.4 g/dL (6.7-8.2) 03/02/18 14:00 Albumin 3.7 g/dL (3.2-5.5) 03/02/18 14:00 Globulin 3.7 g/dL (2.1-4.2) 03/02/18 14:00 Albumin/Globulin Ratio 1.0 (1.0-2.2) 03/02/18 14:00 Lipase 54 U/L (22-51) H 03/02/18 14:00 Urine Color YELLOW 03/02/18 15:05 Urine Clarity CLEAR (CLEAR) 03/02/18 15:05 Urine pH 6.0 PH (5.0-7.5) 03/02/18 15:05 Ur Specific [place] 1.015 (1.002-1.030) 03/02/18 15:05 Urine Protein NEGATIVE mg/dL (NEGATIVE) 03/02/18 15:05 Urine Glucose (UA) NEGATIVE mg/dL (NEGATIVE) 03/02/18 15:05 Urine Ketones 15 mg/dL (NEGATIVE) H 03/02/18 15:05 Urine Occult Blood NEGATIVE (NEGATIVE) 03/02/18 15:05 Urine Nitrite NEGATIVE (NEGATIVE) 03/02/18 15:05 Urine Bilirubin NEGATIVE (NEGATIVE) 03/02/18 15:05 Urine Urobilinogen 0.2 (NORMAL) E.U./dL (NORMAL) 03/02/18 15:05 Ur Leukocyte Esterase NEGATIVE (NEGATIVE) 03/02/18 15:05 Ur Microscopic Review NOT INDICATED 03/02/18 15:05 Urine Culture Comments NOT INDICATED 03/02/18 15:05 Urine Sodium < 12.0 mmol/L 03/02/18 15:05 - Diagnostic Imaging Results Diagnostic Imaging Results: positive: Final report reviewed Diagnostic Imaging Results Comments: CT abdomen/pelvis Impression: Small bowel obstruction with transition point at the terminal ileum. The colon is not decompressed and contains gas and stool, suggesting a low-grade o bstruction. No free air. - EKG Results EKG Interpreted Independently: No Core Measures - Anticipated LOS I expect patient to be DC'd or transferred within 96 hours.: Yes - DVT/VTE - Prophylaxis VTE/DVT Prophylaxis med ordered at admit?: Yes
[2018-03-02] MEDS: PROCHLORPERAZINE 10 MG/2 ML VIAL IVP PRN (18:42)
[2018-03-02] MEDS: HYDROmorphone 1 MG/ML CARPUJECT IVP PRN ×2 (18:42→22:04)
[2018-03-02] MEDS: D5NS W/20 MEQ KCL 1,000 ML IV SCH (19:19)
--- NOTE | 2018-03-02 20:07 | CONSULTATION NOTE ---
Referring Provider Consult Date: 03/02/18 Chief Complaint - Chief Complaint Chief Complaint: nausea History of Present Illness - History of Present Illness HPI Comment/Other: 67 yo man admitted from the ER with a presumed SBO seen on CT. He complains only of nausea with no abdominal pain or vomiting. He recently started narcotics for osteoarthritis and has a fluid/electrolyte imbalance. History - Past Medical History Cardiovascular: reports: None Respiratory: reports: None Neuro: reports: None Endocrine/Autoimmune: reports: None GI: reports: None : reports: None HEENT: reports: None Psych: reports: None Musculoskeletal: reports: Osteoarthritis Derm: reports: None MRSA Hx?: No Other Past Medical History: Non-Hodgkin's lymphoma low-grade B-cell status post treatment last treatment was in 2009. Currently on monitoring - Past Surgical History General: reports: Hiatal hernia repair (X2) Ortho: reports: Shoulder arthroplasty - Family & Social History Family History: Mother: , Father: , Cancer (Father had lung cancer, brother had brain tumor, sister had breast cancer and brother has leukemia), Sister: Cancer, Brother: Cancer, Other family: Cancer Living arrangement: At home Living Situation: With spouse/s.o. Social History Notes: The patient lives in [place], [place] with his . He is originally from [facility] and moved to the [facility] in [place]. 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 He has 3 children and 7 grandchildren. He is and lives with his . He moved to [facility] just a year ago prior to that he was living in [place]. The patient is a non-smoker he does drink wine socially and denies any illicit drug use. - POLST Patient has POLST: No POLST Status: Full Code Meds/Allgy - Home Medications Home Medications: Ambulatory Orders Medication Instructions Recorded Confirmed HYDROmorphone [Dilaudid] 2 mg PO Q4H PRN #20 tablet 03/01/18 Ibuprofen 600 mg PO Q6HR PRN #20 tablet 03/01/18 - Allergies Allergies/Adverse Reactions: Allergies Allergy/AdvReac Type Severity Reaction Status Date / Time No Known Drug Allergies Allergy Verified 03/02/18 13:26 Review of Systems - Gastrointestinal Gastrointestinal: reports: Nausea - Musculoskeletal Musculoskeletal: reports: Joint pain Exam - Vital Signs Vital Signs: Vital Signs x48h Temp Pulse Pulse Resp BP BP Pulse Ox 03/02/18 18:35 36.7 C 78 18 147/80 H 98 03/02/18 18:00 85 15 134/86 H 96 03/02/18 16:06 83 16 134/86 H 95 03/02/18 15:16 139/78 H 97 03/02/18 13:22 36.6 C 76 18 128/78 99 - Physical Exam General Appearance: positive: No acute distress Eyes Bilateral: positive: Normal inspection ENT: positive: ENT inspection nml Neck: positive: Nml inspection Respiratory: positive: Chest non-tender Cardiovascular: positive: Regular rate & rhythm Abdomen: positive: Non-tender Back: positive: Nml inspection Skin: positive: Color nml Extremities: positive: Non-tender Neurologic/Psychiatric: positive: Oriented x3 Conclusion/Plan - Diagnosis Diagnosis: ileus - Plan Plan: Pt has some dilated small bowel loops on CT c/w an ileus or low-grade SBO. In light of the narcotics and electrolyte abnormalities and lack of intra-abdominal surgery, it is most likely an ileus. He did have bilateral open inguinal hernia repairs, but these surgeries do not typically form peritoneal adhesions. I would recommend correcting his electrolyte abnormality and holding narcotics. - Lab Results Lab results reviewed: Yes Fish Bones: 03/02/18 14:00 03/02/18 14:00
[2018-03-02] MEDS: FAMOTIDINE 20 MG/50 ML 50 ML IV SCH (20:09)
[2018-03-03] MEDS: HYDROmorphone 1 MG/ML CARPUJECT IVP PRN ×7 (00:18→13:50)
[2018-03-03] MEDS: SODIUM CHLORIDE FLUSH 0.9% 10 ML SYRINGE IVP SCH ×2 (01:03→07:07)
[2018-03-03] MEDS: PROCHLORPERAZINE 10 MG/2 ML VIAL IVP PRN ×2 (05:35→11:52)
[2018-03-03] MEDS: D5NS W/20 MEQ KCL 1,000 ML IV SCH (05:44)
[2018-03-03 07:14] LABS: BASOPHILS % (AUTO) 0.6 %; EOSINOPHILS # (AUTO) 0.1 10^3/uL (0.0-0.7); EOSINOPHILS % (AUTO) 1.1 %; HGB - HEMOGLOBIN 11.8 g/dL (14.0-18.0); LYMPHOCYTES # (AUTO) 1.4 10^3/uL (1.5-3.5); LYMPHOCYTES % (AUTO) 18.1 %; MEAN CORPUSCULAR HEMOGLOBIN 31.2 pg (27.0-31.0); MEAN CORPUSCULAR VOLUME 89.2 fL (80.0-94.0); MONOCYTES # (AUTO) 0.7 10^3/uL (0.0-1.0); MONOCYTES % (AUTO) 9.3 %; NEUTROPHILS # (AUTO) 5.5 10^3/uL (1.5-6.6); NEUTROPHILS % (AUTO) 70.9 %; PLT - PLATELET COUNT 244 10^3/uL (130-450); RED BLOOD COUNT 3.78 10^6/uL (4.70-6.10); RED CELL DISTRIBUTION WIDTH 12.4 % (12.0-15.0); WHITE BLOOD COUNT 7.7 x10^3/uL (4.8-10.8)
[2018-03-03 07:27] LABS: ALBUMIN 3.2 g/dL (3.2-5.5); ALBUMIN/GLOBULIN RATIO 0.9 (1.0-2.2); BILIRUBIN,TOTAL 0.7 mg/dL (0.2-1.0); CALCIUM 7.9 mg/dL (8.5-10.3); CREATININE 0.7 mg/dL (0.6-1.2); MAGNESIUM 2.4 mg/dL (1.7-2.8); PHOSPHORUS 2.5 mg/dL (2.5-4.6); TOTAL PROTEIN 6.7 g/dL (6.7-8.2)
[2018-03-03] MEDS: FAMOTIDINE 20 MG/50 ML 50 ML IV SCH (07:32)
[2018-03-03 08:01] LABS: % IRON SATURATION 21 % (20-50); IRON 42 ug/dL (45-182); TOTAL IRON BINDING CAPACITY 202 ug/dL (250-450); TRANSFERRIN 144 mg/dL (180-329)
[2018-03-03 08:15] LABS: FERRITIN 175.7 ng/mL (23.9-336.2)
[2018-03-03 08:18] LABS: FOLATE 9.23 ng/mL (5.90 - >24.8); INR 1.2 (0.8-1.2); PT - PROTHROMBIN TIME 13.6 secs (9.9-12.6)
[2018-03-03] MEDS ORDERED: ENOXAPARIN 40 MG/0.4 ML SYRINGE SUBQ SCH (09:00)
[2018-03-03] MEDS ORDERED: POLYETHYLENE GLYCOL 3350 17 GM PACKET PO SCH (09:00)
--- NOTE | 2018-03-03 09:15 | XRAY Report ---
Reason: Small bowel obstruction Procedure Date: 03/03/2018 Accession Number: [id number] / [id number] Procedure: XR - Abdomen 1 View X-Ray CPT Code: 46980 FULL RESULT: EXAM: ABDOMEN RADIOGRAPHY EXAM DATE: 03/03/2018 08:40 AM. CLINICAL HISTORY: Small bowel obstruction. COMPARISON: None. TECHNIQUE: 1 view. FINDINGS: Bowel Gas Pattern: Within normal limits. No dilated loops. Other: None. IMPRESSION: Nonobstructive bowel gas pattern. RADIA
[2018-03-03 11:49] VITALS: BP 148/76
--- NOTE | 2018-03-03 13:14 | Discharge Plan ---
Discharge Plan Disposition: 01 Home, Self Care Condition: Stable Diet: Soft (Advance slowly over the next few days) Activity Restrictions: Activity as Tolerated Shower Restrictions: No Driving Restrictions: No Weight Bearing: Full Weight Additional Instructions or Follow Up instructions: You presented to us with nausea and abdominal bloating along with right hip pain. Looking at your CT scan we found that you had a mild small bowel obstruction. We treated you with IV fluids, electrolyte replacement and bowel rest. You had significant improvement in her symptoms over the course of the night. We did a repeat x-ray of your abdomen which shows that your obstruction has resolved. You were able to tolerate lunch this afternoon without nausea or any abdominal pain and it is felt that you are well enough to be discharged home. For your right hip pain it appears that you have severe arthritis of your right hip. For now we asked that you continue on the ibuprofen 600 mg up to 4 times a day just make sure to eat something when you have the ibuprofen. We also recommend that you take Tylenol 650 mg up to 6 times a day in conjunction with the ibuprofen for the pain in your right hip. I would recommend limiting the oxycodone use to as little as possible only if the pain gets very severe. I would recommend not taking the Dilaudid as it seems to be too strong for you. Also I recommend that you see orthopedic surgery regarding this arthritis as you may benefit from a steroid injection in that hip. I would also recommend seeing your primary care physician in getting a referral for physical therapy as this may also help with the symptoms. No Smoking: If you smoke, Please STOP! Call for help. Follow-up with: Giorgi Clemens MD [Primary Care Provider] -
--- NOTE | 2018-03-03 13:17 | DISCHARGE SUMMARY ---
"Discharge Summary Admit Date: 03/02/18 Discharge Date: 03/03/18 Discharging Provider: Marcio Landin MD Primary Care Provider: Giorgi Clemens MD Code Status: Attempt Resuscitation Condition at Discharge: Stable Discharge Disposition: 01 Home, Self Care - DIAGNOSES Admission Diagnoses: 1. Small bowel obstruction 2. Hyponatremia 3. Hypokalemia 4. Anemia 5. Right hip pain Discharge Diagnoses with Status of Each Condition: 1. Small bowel obstruction: Resolved 2. Hyponatremia: Improved 3. Hypokalemia: Resolved 4. Anemia: Stable 5. Osteoarthritis of the right hip: Stable - HPI History of Present Illness: Patient is a very pleasant 67-year-old gentleman with past medical history significant for osteoarthritis, non-Hodgkin's lymphoma low-grade B cell last treated in 2009 currently under monitoring, history of tuberculosis as a child and 2 hernia repairs who presented to the emergency department with chief complaint of nausea. The patient states that he was in his normal state of health until he returned from a trip to [facility] on February 10 when he states that he came down with a cold. He states that he had symptoms for about 2-3 days and that resolved. He states that after that he had a stomach flu which persisted for several days. He states that during this time he also noticed that he had irregularities in his bowel movements. He states that he seemed to improve. Then on 02/28/2018 the patient had severe right hip pain. He states that this came out of nowhere and it was a 10 out of 10 pain. He states that prior to this he was being evaluated for right knee arthritis and was going to be going for a right knee replacement. He states he does have a history of osteoarthritis. The patient states that he spent the night in the emergency room on 02/28/2018 and was treated with narcotics and then discharged with oxycodone, Dilaudid, ibuprofen and Tylenol for his right hip pain. He also underwent imaging of his right hip which showed severe osteoarthritis. The patient states that when he returned home he began having severe nausea therefore his called back to the emergency department and he was prescribed Zofran. The patient states that despite taking Zofran he continued to be nauseated throughout the day. He states that when he woke up this morning he noticed that he was having a bloated abdomen with no appetite and continued to have nausea. The patient states that his last bowel movement was on 02/28/2018 and he has not had any bowel movement since. States he has been persistently nauseated but has not had any abdominal pain. He states that his nausea was so bad today that he finally came to the emergency department. The patient denies any fevers or chills. Patient denies any headaches, blurred vision, runny nose, sore throat, nasal congestion, difficulty swallowing, chest pain, cough, shortness of air, orthopnea, PND, increased lower extremity swelling, diarrhea, muscle aches, back pain, neck stiffness, skin changes, skin rash, dizziness, syncope, polyuria, polydipsia, dysuria, increased urinary frequency, night sweats or any focal neurologic deficits. On presentation to the emergency department the patient was afebrile and vital signs were within normal limits. The patient did appear to be nauseated and received antiemetics and IV fluids. The patient underwent routine lab work which showed a mild anemia with hemoglobin of 11.8. The patient's sodium was low at 123 and potassium was low at 3.2. The patient did have urine ketones but otherwise urine analysis was negative. The patient was initially feeling better with antiemetics, fluids and pain medication. However after a few hours patient's symptoms return with increasing nausea and abdominal bloating. The emergency room physician decided to get a CT of the abdomen and pelvis which revealed a small bowel obstruction with transition point at the terminal ileum. The colon is not decompressed and contains gas and stool suggesting a low-grade obstruction. Given this finding the patient was placed in observation for small bowel obstruction. - CONSULTS | PROCEDURES Consultations: General Surgery Procedures: Pt has some dilated small bowel loops on CT c/w an ileus or low-grade SBO. In light of the narcotics and electrolyte abnormalities and lack of intra-abdominal surgery, it is most likely an ileus. He did have bilateral open inguinal hernia repairs, but these surgeries do not typically form peritoneal adhesions. I would recommend correcting his electrolyte abnormality and holding narcotics. - HOSPITAL COURSE Hospital Course: Patient was hospitalized for a small bowel obstruction with transition point in the terminal ileum. The patient was treated with supportive care, IV fluids, bowel rest, antiemetics and pain control. The patient had significant improvement in his symptoms over the course of the day and was having flatulence by the morning. The patient's abdominal x-ray showed resolution of the obstruction. Surgery was consulted and felt that most likely the patient had had a ileus secondary to electrolyte abnormalities and narcotics. The patient's electrolyte abnormalities improved and he was advised to decrease his use of narcotics. The patient was able to tolerate a full liquid diet without nausea or abdominal pain. The patient was discharged home in stable condition. He was found to have severe osteoarthritis of his right hip. He was recommended to follow-up with orthopedic surgery and his primary care physician regarding the arthritis. He was also advised to use Tylenol and ibuprofen and really limit the use of oxycodone for his hip pain. The patient was discharged in stable condition. - ALLERGIES Allergies/Adverse Reactions: Allergies Allergy/AdvReac Type Severity Reaction Status Date / Time No Known Drug Allergies Allergy Verified 03/02/18 13:26 - MEDICATIONS Home Medications: Ambulatory Orders Medication Instructions Recorded Confirmed Ibuprofen 600 mg PO Q6HR PRN #20 tablet 03/01/18 03/03/18 Acetaminophen 650 mg PO Q4H PRN 03/03/18 03/03/18 oxyCODONE [Roxicodone] 5 mg PO Q4-6H 03/03/18 03/03/18 - PHYSICAL EXAM AT DISCHARGE General Appearance: positive: No acute distress, Alert Eyes Bilateral: positive: Normal inspection, PERRL, EOMI, No lid inflammation, Conjunctivae nml, No scleral icterus ENT: positive: ENT inspection nml, Pharynx nml, No signs of dehydration. negative: Purulent nasal drainage, Pharyngeal erythema, Oral lesions Neck: positive: Nml inspection, Thyroid nml, No JVD, Trachea midline. negative: Thyromegaly, Lymphadenopathy (R), Lymphadenopathy (L), Stiff neck, Carotid bruit, Tracheal deviation Respiratory: positive: Chest non-tender, No respiratory distress, Breath sounds nml. negative: Wheezes, Rales, Rhonchi Cardiovascular: positive: Regular rate & rhythm, No murmur, No gallop Peripheral Pulses: positive: 2+ Abdomen: positive: Non-tender, No organomegaly, Nml bowel sounds, No distention. negative: Guarding, Rebound, Hepatomegaly Back: positive: Nml inspection. negative: CVA tenderness (R), CVA tenderness (L) Skin: positive: Color nml, No rash, Warm. negative: Diaphoresis, Pallor, Skin rash Extremities: positive: Non-tender, Full ROM, Nml appearance, No pedal edema Neurologic/Psychiatric: positive: Oriented x3, CN's nml (2-12), Motor nml, Sensation nml, Mood/affect nml - LABS Result Diagrams: 03/03/18 07:04 03/03/18 07:04 Other Lab Results: Laboratory Results WBC 7.7 x10^3/uL (4.8-10.8) 03/03/18 07:04 RBC 3.78 10^6/uL (4.70-6.10) L 03/03/18 07:04 Hgb 11.8 g/dL (14.0-18.0) L 03/03/18 07:04 Hct 33.8 % (42.0-52.0) L 03/03/18 07:04 MCV 89.2 fL (80.0-94.0) 03/03/18 07:04 MCH 31.2 pg (27.0-31.0) H 03/03/18 07:04 MCHC 35.0 g/dL (32.0-36.0) 03/03/18 07:04 RDW 12.4 % (12.0-15.0) 03/03/18 07:04 Plt Count 244 10^3/uL (130-450) 03/03/18 07:04 MPV 8.0 fL (7.4-11.4) 03/03/18 07:04 Neut # (Auto) 5.5 10^3/uL (1.5-6.6) 03/03/18 07:04 Lymph # (Auto) 1.4 10^3/uL (1.5-3.5) L 03/03/18 07:04 Sharkey # (Auto) 0.7 10^3/uL (0.0-1.0) 03/03/18 07:04 Eos # (Auto) 0.1 10^3/uL (0.0-0.7) 03/03/18 07:04 Baso # (Auto) 0.0 10^3/uL (0.0-0.1) 03/03/18 07:04 Absolute Nucleated RBC 0.00 x10^3/uL 03/03/18 07:04 Nucleated RBC % 0.1 /100WBC 03/03/18 07:04 PT 13.6 secs (9.9-12.6) H 03/03/18 07:04 INR 1.2 (0.8-1.2) 03/03/18 07:04 Sodium 134 mmol/L (135-145) L 03/03/18 07:04 Potassium 3.5 mmol/L (3.5-5.0) 03/03/18 07:04 Chloride 102 mmol/L (101-111) 03/03/18 07:04 Carbon Dioxide 27 mmol/L (21-32) 03/03/18 07:04 Anion Gap 5.0 (6-13) L 03/03/18 07:04 BUN 6 mg/dL (6-20) 03/03/18 07:04 Creatinine 0.7 mg/dL (0.6-1.2) 03/03/18 07:04 Estimated GFR (MDRD) 112 (>89) 03/03/18 07:04 Glucose 117 mg/dL (70-100) H 03/03/18 07:04 Lactic Acid 0.6 mmol/L (0.5-2.2) 03/03/18 07:04 Calcium 7.9 mg/dL (8.5-10.3) L 03/03/18 07:04 Phosphorus 2.5 mg/dL (2.5-4.6) 03/03/18 07:04 Magnesium 2.4 mg/dL (1.7-2.8) 03/03/18 07:04 Iron 42 ug/dL (45-182) L 03/03/18 07:04 TIBC 202 ug/dL (250-450) L 03/03/18 07:04 % Saturation 21 % (20-50) 03/03/18 07:04 Transferrin 144 mg/dL (180-329) L 03/03/18 07:04 Ferritin 175.7 ng/mL (23.9-336.2) 03/03/18 07:04 Total Bilirubin 0.7 mg/dL (0.2-1.0) 03/03/18 07:04 AST 18 IU/L (10-42) 03/03/18 07:04 ALT 16 IU/L (10-60) 03/03/18 07:04 Alkaline Phosphatase 70 IU/L (42-121) 03/03/18 07:04 Total Protein 6.7 g/dL (6.7-8.2) 03/03/18 07:04 Albumin 3.2 g/dL (3.2-5.5) 03/03/18 07:04 Globulin 3.5 g/dL (2.1-4.2) 03/03/18 07:04 Albumin/Globulin Ratio 0.9 (1.0-2.2) L 03/03/18 07:04 Lipase 54 U/L (22-51) H 03/02/18 14:00 Vitamin B12 872 pg/mL (180-914) 03/03/18 07:04 Folate 9.23 ng/mL (5.90 - >24.8) 03/03/18 07:04 Urine Color YELLOW 03/02/18 15:05 Urine Clarity CLEAR (CLEAR) 03/02/18 15:05 Urine pH 6.0 PH (5.0-7.5) 03/02/18 15:05 Ur Specific [place] 1.015 (1.002-1.030) 03/02/18 15:05 Urine Protein NEGATIVE mg/dL (NEGATIVE) 03/02/18 15:05 Urine Glucose (UA) NEGATIVE mg/dL (NEGATIVE) 03/02/18 15:05 Urine Ketones 15 mg/dL (NEGATIVE) H 03/02/18 15:05 Urine Occult Blood NEGATIVE (NEGATIVE) 03/02/18 15:05 Urine Nitrite NEGATIVE (NEGATIVE) 03/02/18 15:05 Urine Bilirubin NEGATIVE (NEGATIVE) 03/02/18 15:05 Urine Urobilinogen 0.2 (NORMAL) E.U./dL (NORMAL) 03/02/18 15:05 Ur Leukocyte Esterase NEGATIVE (NEGATIVE) 03/02/18 15:05 Ur Microscopic Review NOT INDICATED 03/02/18 15:05 Urine Culture Comments NOT INDICATED 03/02/18 15:05 Urine Sodium < 12.0 mmol/L 03/02/18 15:05 - DIAGNOSTIC IMAGING Diagnostic Imaging Results: Final report reviewed Diagnostic Imaging Results Comments: CT abdomen/pelvis Impression: Small bowel obstruction with transition point at the terminal ileum. The colon is not decompressed and contains gas and stool, suggesting a low-grade obstruction. No free air Abdominal x-ray Impression: Nonobstructive bowel gas pattern. - FOLLOW UP Follow Up: The patient was admitted for a small bowel obstruction versus ileus. The patient's symptoms of nausea and abdominal bloating resolved with supportive care. The patient was able to tolerate a full liquid diet and had no further symptoms. Patient's abdominal x-ray showed resolution of the obstruction. The patient also was found to be hyponatremic and hypokalemic on presentation these improved with IV fluids and electrolyte replacement. The patient continued to have pain in his right hip which was found to be secondary to severe osteoarthritis. The patient was discharged home and will follow up with his primary care physician who may want to refer the patient for physical therapy for his hip. He will also need to follow-up with his orthopedic surgeon and may benefit from a steroid injection. The patient was advised to decrease his use of narcotics and try to use ibuprofen and Tylenol as much as possible for his hip pain. - TIME SPENT Time Spent in Discharge (Minutes): 45"
== END 2018-03-03 14:05 | disposition home or self-care (01) ==
LOC: ED 13:13 → OBS 18:06
PROVIDERS: ADMIT Internal Medicine; ATTEND Internal Medicine
DX: K56.609 Unspecified intestinal obstruction, unspecified as to partial versus complete obstruction (principal); E87.1 Hypo-osmolality and hyponatremia; E87.6 Hypokalemia; D64.9 Anemia, unspecified; M16.11 Unilateral primary osteoarthritis, right hip; C85.10 Unspecified B-cell lymphoma, unspecified site; Z86.11 Personal history of tuberculosis; Z79.891 Long term (current) use of opiate analgesic; Z79.1 Long term (current) use of non-steroidal anti-inflammatories (NSAID)
CPT/HCPCS: 36415; 74018; 74177; 80053; 81003; 82607; 82728; 82746; 83540; 83605; 83690; 83735; 84100; 84300; 84466; 85025; 85610; 96361; 96365; 96366; 96372; 96375; 96376; 99284; A9270; G0378; J1170; J1650; Q9967; 81001; 87086; 96374

== ENCOUNTER 2018-03-10 07:54 | Outpatient (CLI) | payer MEDICARE, OTHER ==
[2018-03-10 10:43] LABS: BASOPHILS # (AUTO) 0.1 10^3/uL (0.0-0.1); BASOPHILS % (AUTO) 0.5 %; EOSINOPHILS % (AUTO) 0.4 %; HGB - HEMOGLOBIN 12.8 g/dL (14.0-18.0); LYMPHOCYTES # (AUTO) 2.2 10^3/uL (1.5-3.5); LYMPHOCYTES % (AUTO) 21.5 %; MEAN CORPUSCULAR HEMOGLOBIN 30.9 pg (27.0-31.0); MEAN CORPUSCULAR HGB CONC 34.8 g/dL (32.0-36.0); MEAN PLATELET VOLUME 8.6 fL (7.4-11.4); MONOCYTES # (AUTO) 0.9 10^3/uL (0.0-1.0); MONOCYTES % (AUTO) 8.5 %; NEUTROPHILS % (AUTO) 69.1 %; PLT - PLATELET COUNT 341 10^3/uL (130-450); RED BLOOD COUNT 4.14 10^6/uL (4.70-6.10); RED CELL DISTRIBUTION WIDTH 12.6 % (12.0-15.0); WHITE BLOOD COUNT 10.1 x10^3/uL (4.8-10.8)
[2018-03-10 10:55] LABS: CALCIUM 9.4 mg/dL (8.5-10.3); CREATININE 0.9 mg/dL (0.6-1.2)
== END 2018-03-10 07:55 | disposition home or self-care (01) ==
LOC: LAB.F 07:54
PROVIDERS: ATTEND Internal Medicine
DX: E87.6 Hypokalemia (principal); E87.1 Hypo-osmolality and hyponatremia; K56.609 Unspecified intestinal obstruction, unspecified as to partial versus complete obstruction
CPT/HCPCS: 36415; 80048; 85025

== ENCOUNTER 2018-03-17 08:00 | Outpatient (CLI) | payer MEDICARE, OTHER | END 2018-03-17 23:59 | disposition home or self-care (01) | LOC: LAB.F 08:00 | PROVIDERS: ATTEND Internal Medicine | DX: Z96.641 Presence of right artificial hip joint (principal) | CPT/HCPCS: 85610 ==

== ENCOUNTER 2018-03-20 09:47 | Outpatient (CLI) | payer MEDICARE, OTHER ==
[2018-03-20 17:37] LABS: INR 2.6 (0.8-1.2); PT - PROTHROMBIN TIME 29.1 secs (9.9-12.6)
== END 2018-03-20 09:48 | disposition home or self-care (01) ==
LOC: LAB.F 09:47
PROVIDERS: ATTEND Orthopaedic Surgery
DX: Z51.81 Encounter for therapeutic drug level monitoring (principal); Z79.01 Long term (current) use of anticoagulants
CPT/HCPCS: 36415; 85610

== ENCOUNTER 2018-03-24 08:15 | Outpatient (CLI) | payer MEDICARE, OTHER ==
[2018-03-24 12:20] LABS: INR 1.5 (0.8-1.2); PT - PROTHROMBIN TIME 16.2 secs (9.9-12.6)
== END 2018-03-24 08:16 | disposition home or self-care (01) ==
LOC: LAB.F 08:15
PROVIDERS: ATTEND Orthopaedic Surgery
DX: Z51.81 Encounter for therapeutic drug level monitoring (principal); Z79.01 Long term (current) use of anticoagulants
CPT/HCPCS: 36415; 85610

== ENCOUNTER 2018-03-31 07:28 | Outpatient (CLI) | payer MEDICARE, OTHER ==
[2018-03-31 11:00] LABS: PT - PROTHROMBIN TIME 20.9 secs (9.9-12.6)
[2018-03-31 11:14] LABS: INR 1.9 (0.8-1.2)
== END 2018-03-31 07:29 | disposition home or self-care (01) ==
LOC: LAB.F 07:28
PROVIDERS: ATTEND Orthopaedic Surgery
DX: Z51.81 Encounter for therapeutic drug level monitoring (principal); Z79.01 Long term (current) use of anticoagulants
CPT/HCPCS: 36415; 85610

== ENCOUNTER 2020-02-03 07:18 | Outpatient (CLI) | payer MEDICARE, OTHER ==
[2020-02-03 15:52] LABS: BASOPHILS % (AUTO) 0.6 %; EOSINOPHILS # (AUTO) 0.2 10^3/uL (0.0-0.7); EOSINOPHILS % (AUTO) 2.9 %; LYMPHOCYTES # (AUTO) 1.7 10^3/uL (1.5-3.5); LYMPHOCYTES % (AUTO) 24.8 %; MEAN CORPUSCULAR HEMOGLOBIN 30.7 pg (27.0-31.0); MEAN CORPUSCULAR HGB CONC 31.7 g/dL (32.0-36.0); MEAN CORPUSCULAR VOLUME 96.7 fL (80.0-94.0); MEAN PLATELET VOLUME 11.1 fL (7.4-11.4); MONOCYTES # (AUTO) 0.8 10^3/uL (0.0-1.0); MONOCYTES % (AUTO) 11.8 %; NEUTROPHILS # (AUTO) 4.2 10^3/uL (1.5-6.6); NEUTROPHILS % (AUTO) 59.6 %; PLT - PLATELET COUNT 224 10^3/uL (130-450); RED BLOOD COUNT 3.91 10^6/uL (4.70-6.10); RED CELL DISTRIBUTION WIDTH 13.3 % (12.0-15.0)
[2020-02-03 16:03] LABS: ALBUMIN 3.9 g/dL (3.2-5.5); BILIRUBIN,TOTAL 0.7 mg/dL (0.2-1.0); CALCIUM 9.1 mg/dL (8.5-10.3); CREATININE 0.9 mg/dL (0.6-1.2)
== END 2020-02-03 07:19 | disposition home or self-care (01) ==
LOC: LAB.S 07:18
PROVIDERS: ATTEND Internal Medicine
DX: Z00.00 Encounter for general adult medical examination without abnormal findings (principal); Z12.11 Encounter for screening for malignant neoplasm of colon; Z12.5 Encounter for screening for malignant neoplasm of prostate
CPT/HCPCS: 36415; 80053; 82274; 85025; G0103; 84153

== ENCOUNTER 2020-08-08 07:20 | Outpatient (CLI) | payer MEDICARE, OTHER ==
[2020-08-08 14:33] LABS: BASOPHILS % (AUTO) 0.6 %; EOSINOPHILS # (AUTO) 0.3 10^3/uL (0.0-0.7); HCT - HEMATOCRIT 39.6 % (42.0-52.0); HGB - HEMOGLOBIN 12.8 g/dL (14.0-18.0); LYMPHOCYTES # (AUTO) 1.5 10^3/uL (1.5-3.5); LYMPHOCYTES % (AUTO) 22.4 %; MEAN CORPUSCULAR HEMOGLOBIN 30.7 pg (27.0-31.0); MEAN CORPUSCULAR HGB CONC 32.3 g/dL (32.0-36.0); MEAN PLATELET VOLUME 10.5 fL (7.4-11.4); MONOCYTES # (AUTO) 0.8 10^3/uL (0.0-1.0); MONOCYTES % (AUTO) 11.4 %; NEUTROPHILS # (AUTO) 4.1 10^3/uL (1.5-6.6); NEUTROPHILS % (AUTO) 61.5 %; PLT - PLATELET COUNT 270 10^3/uL (130-450); RED BLOOD COUNT 4.17 10^6/uL (4.70-6.10); RED CELL DISTRIBUTION WIDTH 13.5 % (12.0-15.0); WHITE BLOOD COUNT 6.7 x10^3/uL (4.8-10.8)
[2020-08-08 14:52] LABS: ALBUMIN 3.9 g/dL (3.2-5.5); ALKALINE PHOSPHATASE 82 IU/L (42-121); ALT ALANINE AMINOTRANSFERASE 22 IU/L (10-60); AST ASPARTATE AMINOTRANSFERASE 24 IU/L (10-42); BILIRUBIN,TOTAL 0.6 mg/dL (0.2-1.0); BUN - BLOOD UREA NITROGEN 19 mg/dL (6-20); CALCIUM 9.2 mg/dL (8.5-10.3); CARBON DIOXIDE - CO2 25 mmol/L (21-32); CHLORIDE 104 mmol/L (101-111); CREATININE 0.8 mg/dL (0.6-1.2); GFR - MDRD 96 (>89); GLUCOSE 107 mg/dL (70-100); POTASSIUM 3.7 mmol/L (3.5-5.0); SODIUM 138 mmol/L (135-145); TOTAL PROTEIN 8.5 g/dL (6.7-8.2)
[2020-08-08 14:53] LABS: ALBUMIN/GLOBULIN RATIO 0.8 (1.0-2.2); CHOL/HDL RATIO 2.7 (<5.0); CHOLESTEROL 178 mg/dL; HDL CHOLESTEROL 66 mg/dL; LDL CHOLESTEROL,CALCULATED 101 mg/dL; LDL/HDL RATIO 1.5 (<3.6); TRIGLYCERIDES 56 mg/dL; VLDL CHOLESTEROL 11 mg/dL
== END 2020-08-08 07:21 | disposition home or self-care (01) ==
LOC: LAB.S 07:20
PROVIDERS: ATTEND Internal Medicine
DX: Z00.00 Encounter for general adult medical examination without abnormal findings (principal); Z12.11 Encounter for screening for malignant neoplasm of colon; R03.0 Elevated blood-pressure reading, without diagnosis of hypertension
CPT/HCPCS: 36415; 80053; 80061; 83721; 85025

== ENCOUNTER 2020-09-02 08:00 | Outpatient (CLI) | payer MEDICARE, OTHER ==
[2020-09-02 19:48] LABS: FECAL OCCULT BLOOD (FIT) NEGATIVE (NEGATIVE)
== END 2020-09-02 23:59 | disposition home or self-care (01) ==
LOC: LAB.R 08:00
PROVIDERS: ATTEND Internal Medicine
DX: Z12.11 Encounter for screening for malignant neoplasm of colon (principal)
CPT/HCPCS: 82274

== ENCOUNTER 2021-10-21 08:00 | Outpatient (CLI) | payer MEDICARE, OTHER ==
--- NOTE | 2021-10-21 18:24 | XRAY Report ---
PROCEDURE: Cervical Spine 2 View INDICATIONS: OSTEOARTHRITIS CERVICAL SPINE TECHNIQUE: 3 view(s) of the cervical spine were acquired. COMPARISON: None. FINDINGS: Bones: No fractures or dislocations to the C7-T1 level. The lateral masses of C1 appear intact on t he odontoid view. No suspicious bony lesions. Severe disc space narrowing is present C3-4, mild to moderate throughout the remainder of the cervical spine. Multilevel moderate to severe uncovertebral arthropathy is present. Soft tissues: No prevertebral soft tissue swelling. IMPRESSION: Degenerative changes most severe at C3-4. Reviewed by: Rowan De Luna MD on 10/21/2021 6:23 PM PDT Approved by: Rowan De Luna MD on 10/21/2021 6:23 PM PDT Station ID: [id number]
== END 2021-10-21 23:59 | disposition home or self-care (01) ==
LOC: DI.S 08:00
PROVIDERS: ATTEND Emergency Medicine
DX: M47.892 Other spondylosis, cervical region (principal)

== ENCOUNTER 2022-12-13 07:51 | Outpatient (CLI) | payer MEDICARE, OTHER ==
--- NOTE | 2022-12-13 11:59 | XRAY Report ---
PROCEDURE: Chest 2 View X-Ray INDICATIONS: DYSPHAGIA TECHNIQUE: 2 views of the chest were acquired. COMPARISON: None. FINDINGS: Surgical changes and devices: Surgical clips are seen projecting over the left chest. Surgical ancho rs are seen in the humeral heads bilaterally. Lungs and pleura: No pleural effusions or pneumothorax. Lungs are clear. Mediastinum: Mediastinal contours appear normal. Heart size is normal. Bones and chest wall: No suspicious bony lesions. Overlying soft tissues appear unremarkable. IMPRESSION: No acute cardiopulmonary process. Reviewed by: Javed Miramontes MD on 12/13/2022 11:58 AM PDT Approved by: Javed Miramontes MD on 12/13/2022 11:58 AM PDT Station ID: [id number]
== END 2022-12-13 23:59 | disposition home or self-care (01) ==
LOC: DI.S 07:51
PROVIDERS: ATTEND Emergency Medicine
DX: R13.14 Dysphagia, pharyngoesophageal phase (principal)